=== PATIENT | male | born 2000 | race Caucasian/White ===

== ENCOUNTER 2025-04-19 10:01 | Emergency (ER) | payer OTHER, SELFPAY ==
[2025-04-19 10:10] VITALS: BP 154/79; PULSE 102; RESP 16; TEMP 37.5; O2SAT 99
--- OUTSIDE RECORDS SUMMARY | 2025-04-19 10:45 | XMS_ITS ---
Author Organization Unknown ENCOUNTERS Encounter Performer Location Date Diagnosis Diagnosis Status Emergency ARIA GARCIA [id number] [place] [address] [id number] *Note: Encounters from your own facility or health system may be excluded. Allergies, Adverse Reactions, Alerts Allergen Type Severity Identification Date Medications Name Date Quantity Days Supplied GPI Number
--- OUTSIDE RECORDS SUMMARY | 2025-04-19 10:45 | XMS_ITS | Clinical Summary ---
Author Organization [facility] Address [address] 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 This disclosure is being madepursuant to the Care Everywhere program and may not contain all information available regarding this patient. Last updated 18.[facility] Allergies No known active allergies Medications * Be aware that medications may not be up to date on this document. Alwaysverify current medications with the patient. fluticasone propionate (Flonase) 50 MCG/ACT nasal spray [place] 2 (two) sprays into each nostril once daily 1 Each 06/14/2022 Active ondansetron, disintegrating, (Zofran ODT) 4 MG tablet Take 1 (one) tablet by mouth every 6 hours as needed for Nausea/Vomiti ng Allow tablet to dissolve on the tongue 20 tablet 06/14/2022 Active Social History Tobacco Use Types Packs/Day Years Used Date Smoking Tobacco: Never Smokeless Tobacco: Never Tobacco Cessation:Counseling Given: Not Answered Alcohol Use Standard Drinks/Week Comments Yes 0 (1 standard drink = 0.6 oz pur e alcohol) occasional Sex and Gender Information Value Date Recorded Sex Assigned at Not on file Legal Sex Male 2:33 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 Gender Identity Not on file Sexual Orientation Not on file Last Filed Vital Signs Vital Sign Reading Time Taken Comments Blood Pressure 153/75 06/14/2022 2:34 PM 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 Pulse 76 06/14/2022 2:34 PM 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 Temperature 36.8 C (98.3 F) 06/14/2022 2:34 PM 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 Respiratory Rate 17 06/14/2022 2:34 PM 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 Oxygen Saturation 95% 06/14/2022 2:34 PM 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 Inhaled Oxygen Concentration - - Weight 119.3 kg (263 lb) 06/14/2022 2:34 PM 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 Height 188 cm (6' 2) 06/14/2022 2:34 PM 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 Body Mass Index 33.77 06/14/2022 2:34 PM 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 Plan of Treatment Health Maintenance Due Date Last Done Comments HIV SCREENING 2017 HPV VACCINE (1 - Male 3-dose series) 2017 MENINGOCOCCAL (Group B) VACC INE SHARED DECISION-MAKING (1 of 2 - Standard) 2018 HEPATITIS C SCREENING 09/20/2020 DTAP/TDAP/TD VACCINES (1 - Tdap) 2021 HEPATITIS B VACCINE (1 of 3 - 19+ 3-dose series) 2021 DEPRESSION SCREENING 06/13/2024 COVID-19 VACCINE (1 - 2023-2 5 season) 2025 INFLUENZA VACCINE (#1) 2025 ZOSTER VACCINE (1 of 2) 2052 HIB VACCINE Aged Out No longer eligi ble based on patient's age to complete this topic MENINGOCOCCAL GROUPS A/C/Y/W VACCINE Aged Out No longer eligible b ased on patient's age to complete this topic PNEUMOCOCCAL VACCINE Aged Out No long er eligible based on patient's age to complete this topic Insurance [facility] [place] [address] [facility]
--- OUTSIDE RECORDS SUMMARY | 2025-04-19 10:45 | XMS_ITS | Clinical Summary ---
Author Organization [facility] Address [address] [place] [address] Phone Care Team Providers Care Physiotherapy Assistant Name Role Phone Anastasia Wynn MD Primary Care Provider [phone] Allergies No known active allergies Medications montelukast (SINGULAIR) 10 MG Tablet Take 10 mg by mouth every evening. Active FLUTICASONE PROPIONATE, NASAL, NA by Nasal route. Active Social History Tobacco Use Types Packs/Day Years Used Date Smoking Tobacco: Never Alcohol Use Standard Drinks/Week Comments No 0 (1 standard drink = 0.6 oz pur e alcohol) Sex and Gender Information Value Date Recorded Sex Assigned at Not on file Legal Sex Male 4:34 PM CDT Gender Identity Not on file Sexual Orientation Not on file Last Filed Vital Signs Vital Sign Reading Time Taken Comments Blood Pressure - - Pulse 111 02/13/2017 4:47 PM CDT Temperature 36.3 C (97.4 F) 02/13/2017 4:47 PM CDT Respiratory Rate - - Oxygen Saturation 97% 02/13/2017 4:47 PM CDT Inhaled Oxygen Concentration - - Weight 95.3 kg (210 lb) 02/13/2017 4:47 PM CDT Height 175.3 cm (5' 9) 02/13/2017 4:47 PM CDT Body Mass Index 31.01 02/13/2017 4:47 PM CDT Plan of Treatment Health Maintenance Due Date Last Done Comments Hepatitis C Virus (HCV) Screening 2002 TdaP Immunization 2002 Human Papillomavirus (HPV) Immunization (1 - Male 3-dose series) 2017 Meningococcal B Immunization (1 of 2 - Standard) 2018 Hepatitis B Immunization (1 of 3 - 19+ 3-dose series) 2021 Influenza Immunization (#1) 2025 SARS-COV-2 Immunization ( season) 2025 Respiratory Syncytial Virus (RSV) Immunization (Adult) (1 - 1-dose 75+ series) 2077 Meningococcal Immunization (ACWY) Aged Out No longer eligible based on patient's age to complete this topic Pneumococcal Immunization Combined Aged Out No longer eligible based on patient's age to complete this topic Rotavirus Immunization Aged Out No lo nger eligible based on patient's age to complete this topic Care Teams Physiotherapy Assistant Relationship Specialty Start Date End Date Anastasia Wynn MD [address] [place] [address] [address] PCP - General Pediatrics 02/13/17
--- NOTE | 2025-04-19 11:05 | ED.EAR ---
HPI - Ear Problem General Chief complaint: Ear Stated complaint: ear pain Time Seen by Provider: 04/19/25 11:05 Source: patient, RN notes reviewed and old records reviewed Mode of arrival: ambulatory Limitations: no limitations History of Present Illness HPI Narrative: 24 year old male presents to [facility] care with complaints of right ear pain with decreased hearing since Tuesday. Patient reports that he had a cold last week but those symptoms seemed to get better except still has some runny nose and congestion. Patient reports that he has been taking ibuprofen and Zyrtec for his symptoms and also some Benadryl. He states that he put some hydrogen peroxide in his ear which made the pain worse. He reports no drainage from his right ear. MD Complaint: ear pain and decreased hearing Location: right ear Duration: constant Severity: moderate Discharge from ear: Reports no Treatment prior to arrival: oral analgesic (Ibuprofen Zyrtec and Benadryl and did put H2O2 in his ear once) Related Data Allergies Allergy/AdvReac Type Severity Reaction Status Date / Time No Known Allergies Allergy Verified 04/19/25 10:19 Review of Systems Review of Systems: CONSTITUTIONAL: Reports malaise, no chills, sweats, or known fever. EYES: Denies visual changes, redness, or discharge. ENT: Reports rhinorrhea, congestion, sinus pain, right otalgia and no sore throat. CARDIOVASCULAR: Denies chest pain, palpitations, or edema. RESPIRATORY: Reports no cough.? Denies dyspnea. GASTROINTESTINAL: Denies abdominal pain, nausea, vomiting, diarrhea SKIN: Denies rash or itching. MUSCULOSKELETAL: Denies myalgia. NEUROLOGIC: Denies headache. All systems reviewed & are unremarkable except as noted in HPI and below PMFSH Social History Social History (Updated 04/20/25 @ 11:21 by Alexandria Villatoro APRN) Additional smoking assessment comments: Never smoker Alcohol intake: current Alcohol use details: social Substance use type: does not use Living arrangements: with family Gender identity (if verbalized by the patient): Male Comments At time of signature, agree with nursing past medical, surgical, social and family history. There is no relevant family history pertinent to the presenting complaint Exam Narrative: GENERAL: Well-appearing, well-nourished, and in no acute distress. HEAD: Normocephalic EYES: PERRLA, conjunctivae clear ENT: Nares clear, turbinates edematous and erythematous, clear discharge. Mucous membranes moist.Right TM red with canal red positive for tragal tenderness. Left TM pearly wade with dull light reflex;right tragal tenderness. Oropharynx erythematous without lesions. Tonsils not enlarged and without exudate, no drooling, no hoarseness, no trismus, uvula midline.some post nasal drainage observed NECK: Supple. No lymphadenopathy CHEST: Clear to auscultation, breath sounds equal. No wheezing, rhonchi, rales, or stridor. No respiratory distress, speaks in full sentences.no cough noted, SAO2 99% on room air HEART: Regular rate and rhythm. No murmur heard. SKIN: Warm, dry, no rash. NEURO: Alert and oriented x3. PSYCH: Normal mood and affect Course Course Emergency Course: Patient is aware of diagnosis, understands and agrees to treatment plan.? Anticipatory guidance given.? Patient agrees to follow-up as directed and is aware of reasons to seek care at the emergency department. Portions of this record may have been created with voice recognition software Level of Care: Express Care Visit Vital Signs Vital signs: Vital Signs Temperature 37.5 C 04/19/25 10:10 Pulse Rate 102 H 04/19/25 10:10 Respiratory Rate 16 04/19/25 10:10 Blood Pressure 154/79 H 04/19/25 10:10 Pulse Oximetry 99 04/19/25 10:10 Oxygen Delivery Room Air 04/19/25 10:10 Temperature 37.5 C 04/19/25 10:10 Pulse Rate 102 H 04/19/25 10:10 Respiratory Rate 16 04/19/25 10:10 Blood Pressure 154/79 H 04/19/25 10:10 Pulse Oximetry 99 04/19/25 10:10 Oxygen Delivery Room Air 04/19/25 10:10 Reviewed Medical Decision Making Differential Diagnosis Differential Diagnosis: URI, otitis media, otitis externa,viral infection, Medical Records Medical records reviewed: Yes I reviewed the external patient's medical records. Vital Signs Vital Signs: Vital Signs Temperature 37.5 C 04/19/25 10:10 Pulse Rate 102 H 04/19/25 10:10 Respiratory Rate 16 04/19/25 10:10 Blood Pressure 154/79 H 04/19/25 10:10 Pulse Oximetry 99 04/19/25 10:10 Oxygen Delivery Room Air 04/19/25 10:10 Temperature 37.5 C 04/19/25 10:10 Pulse Rate 102 H 04/19/25 10:10 Respiratory Rate 16 04/19/25 10:10 Blood Pressure 154/79 H 04/19/25 10:10 Pulse Oximetry 99 04/19/25 10:10 Oxygen Delivery Room Air 04/19/25 10:10 reviewed Critical Care Time Critical Care Time Critical Care Time: No Discharge Plan Discharge Clinical Impression: Otitis externa Qualifiers: Otitis externa type: diffuse Chronicity: acute Laterality: right Qualified Code(s): H60.311 - Diffuse otitis externa, right ear Otitis media Qualifiers: Otitis media type: serous Chronicity: acute Laterality: right Recurrence: non-recurrent Qualified Code(s): H65.01 - Acute serous otitis media, right ear Patient Disposition: Home Condition: Stable Instructions: Antibiotic Form, Ear Infection (ED) Additional Instructions: Increase fluids especially juices and water [id number] cough and cold medicine of your choice for your symptoms Zyrtec Claritin or Laly daily Tylenol or ibuprofen for any fever pain package directions heat to the face 20-30 minutes 4-6 times a day for pain Salt water gargles, throat lozenges or throat sprays as desired Antibiotic as directed--finished the medication ear drops to right ear as prescribed for the next 7 days If your symptoms persist, change or worsen significantly before you can contact your personal physician then please, without delay, go to the emergency department for further evaluation. Follow-up with PCP in 7-10 days or sooner if needed Follow up with PCP soon in regards to your blood pressure which is elevated above threshold for referral. Blood pressure above 120/80 may indicate pre-hypertension. 154/79 Patient Language: Armenian Prescriptions: New amoxicillin-pot clavulanate 875-125 mg tablet 1 tablet PO Q12H Qty: 20 0RF Rx Instructions: take all doses of oral antibiotic recommend taking a probiotic or eating Activia yogurt while on this medication ofloxacin 0.3 % drops 5 drp RIGHT EAR BID 7 Days Qty: 10 0RF Follow-up/Referrals: PHYSICIAN,WEIGHT REDUCTION SPECIALIST [Primary Care Provider, Internal Medicine] Time of Disposition: 11:34 Quality [place] Coma Scale Eyes: Open Verbal: Oriented and Alert Motor: Follows Commands Leigh Coma Total Score: 15
== END 2025-04-19 11:43 | disposition home or self-care (01) ==
PROVIDERS: Emergency Provider Registered Nurse
DX: H60.311 Diffuse otitis externa, right ear (principal); H65.01 Acute serous otitis media, right ear
CPT/HCPCS: 99203; G0463